=== PATIENT | female | born 1995 | race Caucasian/White ===

== ENCOUNTER 2016-08-20 15:27 | Outpatient (CLI) | payer MEDICAID ==
[~2016-08-20] VITALS: Ht 162.6 cm; Wt 104.3 kg
[~2016-08-20 15:27] MED LIST: CEPH500C PO; DOXY1TAB3 PO
[2016-08-20 15:53] VITALS: BP 109/70
[2016-08-20] MEDS ORDERED: D5 LR IV SOLUTION 1,000 ML IV ONE (16:08)
[2016-08-20] MEDS: D5 LR IV SOLUTION 1,000 ML IV SCH ×2 (16:20→17:53)
[2016-08-20 16:34] LABS: BASOPHILS % (AUTO) 0 % (0-10); EOSINOPHILS # (AUTO) 0.1 10^3/uL (0.0-0.3); EOSINOPHILS % (AUTO) 0 % (0-10); LYMPHOCYTES # (AUTO) 2.9 X 10^3 (1.0-4.0); LYMPHOCYTES % (AUTO) 15 % (12-44); MEAN CORPUSCULAR HEMOGLOBIN 31 PG (25-34); MEAN CORPUSCULAR HGB CONC 36 G/DL (32-36); MEAN CORPUSCULAR VOLUME 88 FL (80-99); MEAN PLATELET VOLUME 11.9 FL (7.4-10.4); MONOCYTES # (AUTO) 1.5 X 10^3 (0.0-1.0); MONOCYTES % (AUTO) 8 % (0-12); NEUTROPHILS # (AUTO) 14.9 X 10^3 (1.8-7.8); NEUTROPHILS % (AUTO) 77 % (42-75); PLATELET COUNT 222 10^3/uL (130-400); RED BLOOD COUNT 4.52 10^6/uL (4.35-5.85); RED CELL DISTRIBUTION WIDTH 13.4 % (10.0-14.5); WHITE BLOOD COUNT 19.4 10^3/uL (4.3-11.0)
[2016-08-20 16:44] LABS: BILIRUBIN,URINE NEGATIVE (NEGATIVE); KETONES,URINE NEGATIVE (NEGATIVE); LEUKOCYTE ESTERASE ,URINE 1+ (NEGATIVE); NITRITE,URINE NEGATIVE (NEGATIVE); PH,URINE 6 (5-9); PROTEIN,URINE 2+ (NEGATIVE); UROBILINOGEN,URINE 1 MG/DL (NORMAL)
[2016-08-20 17:07] LABS: CALCIUM OXALATE CRYSTALS,UR FEW /LPF; SQUAMOUS EPITHELIAL CELL,UR >50 /HPF; WBC,URINE RARE /HPF
[2016-08-20 19:00] VITALS: BP 108/60
[2016-08-20] MEDS ORDERED: cefTRIAXone 1 GM (ROCEPHIN) VIAL ONE (19:24)
[2016-08-20] MEDS ORDERED: LIDOCAINE PF 1% 5 ML (XYLOCAINE) AMP ONE (19:24)
[2016-08-20] MEDS ORDERED: cefTRIAXone 1 GM (ROCEPHIN) VIAL IM ONE (19:30)
[2016-08-20] MEDS ORDERED: LIDOCAINE 1% INJ 20 ML (XYLOCAINE) VIAL INJ ONE (19:30)
--- NOTE | 2016-08-20 19:32 | History & Physical ---
History and Physical patient is a 21-year-old G1 white female with an EDC of [id number] [phone] based on an ultrasound was performed after 20 weeks gestation. This date she is around 36 weeks gestation. She presented with complaint of contractions pain and pressure. She was found to be quite dehydrated with urine specific gravity 1.03. White blood cell count is elevated at 19,000. She has been hydrated now with 2 L of D5 LR and her contractions have resolved. She reports feeling much better. She is afebrile. UA was essentially normal as was a wet prep. Allergies are to Compazine and Benadryl and promethazine Medications are Zofran and Phenergan Reglan and vitamins S medical history past surgical history obstetric history family history is social histories are per her antepartum records from her provider in [place] which have been reviewed. HEENT exam is normal Neck is supple no lymphadenopathy no thyromegaly Abdomen is gravid soft nontender nondistended Extreme show clubbing or cyanosis. There is no Homans sign. Pelvic exam shows a cervix that is 1 cm and very long per the nurses shows no change on serial exams. Laboratory Tests Test 08/20/16 16:20 08/20/16 16:35 Range/Units White Blood Count 19.4 H 4.3-11.0 10^3/uL Red Blood Count 4.52 4.35-5.85 10^6/uL Hemoglobin 14.2 11.5-16.0 G/DL Hematocrit 40 35-52 % Mean Corpuscular Volume 88 80-99 FL Mean Corpuscular Hemoglobin 31 25-34 PG Mean Corpuscular Hemoglobin Concent 36 32-36 G/DL Red Cell Distribution Width 13.4 10.0-14.5 % Platelet Count 222 130-400 10^3/uL Mean Platelet Volume 11.9 H 7.4-10.4 FL Neutrophils (%) (Auto) 77 H 42-75 % Lymphocytes (%) (Auto) 15 12-44 % Monocytes (%) (Auto) 8 0-12 % Eosinophils (%) (Auto) 0 0-10 % Basophils (%) (Auto) 0 0-10 % Neutrophils # (Auto) 14.9 H 1.8-7.8 X 10^3 Lymphocytes # (Auto) 2.9 1.0-4.0 X 10^3 Monocytes # (Auto) 1.5 H 0.0-1.0 X 10^3 Eosinophils # (Auto) 0.1 0.0-0.3 10^3/uL Basophils # (Auto) 0.0 0.0-0.1 10^3/uL Urine Color YELLOW Urine Clarity CLEAR Urine pH 6 5-9 Urine Specific [place] 1.030 H 1.016-1.022 Urine Protein 2+ H NEGATIVE Urine Glucose (UA) NEGATIVE NEGATIVE Urine Ketones NEGATIVE NEGATIVE Urine Nitrite NEGATIVE NEGATIVE Urine Bilirubin NEGATIVE NEGATIVE Urine Urobilinogen 1 NORMAL MG/DL Urine Leukocyte Esterase 1+ H NEGATIVE Urine RBC (Auto) 2+ H NEGATIVE Urine RBC 2-5 H /HPF Urine WBC RARE /HPF Urine Squamous Epithelial Cells >50 H /HPF Urine Crystals PRESENT H /LPF Urine Calcium Oxalate Crystals FEW H /LPF Urine Bacteria NEGATIVE /HPF Urine Casts NONE /LPF Urine Mucus LARGE H /LPF Urine Culture Indicated NO Assessment and plan 36 week gestation with poor dating. Patient does not appear to be acutely infected. Her contractions have resolved with hydration. We will give her a gram of Rocephin IM empirically and allow her discharge home to follow up with her provider. She does plan to return to [place] after release from the hospital here. She is given strict precautions return to clinic for any signs symptoms and indications of infection or labor. 36 week with late care and poor dating with labor Allergies and Home Medications Allergies Coded Allergies: prochlorperazine edisylate (Unverified Adverse Reaction, Intermediate, PYSCHOTIC BEHAVIOR, 10/08/10) prochlorperazine maleate (Unverified Adverse Reaction, Intermediate, PYSCHOTIC BEHAVIOR, 10/08/10) diphenhydramine HCl (Unverified Adverse Reaction, Mild, JITTERS, 10/08/10) Home Medications Cephalexin 500 Mg Capsule, 500 MG PO Q8H, #15 Ref 0 Prescribed by: EDUARDO MORAES on 05/14/162258 Doxylamine/Pyridoxine HCl 1 Each Tablet., 2 EACH PO HS, #20 Ref 0 Prescribed by: EDUARDO MORAES on 05/14/162258 BLAISE DANIELS MD Aug 20, 2016 7:32 pm
[2016-08-20] MEDS ORDERED: METO-310 PO (19:47)
[2016-08-20] MEDS ORDERED: PREN1TAB71 PO (19:47)
[2016-08-20] MEDS ORDERED: PROM25TA14 PO (19:47)
[2016-08-20] MEDS ORDERED: ONDA4TAB8 PO (19:47)
== END 2016-08-20 20:20 | disposition home or self-care (01) ==
LOC: DELPENDDIS → WSo 15:27 → LDRP 15:27 → WSo 20:20
PROVIDERS: ATTEND Obstetrics & Gynecology
DX: O60.03 Preterm labor without delivery, third trimester (principal); Z3A.36 36 weeks gestation of pregnancy
CPT/HCPCS: 36415; 81000; 85025; 87210; 96360; 96361; 96372